=== PATIENT | female | born 1995 | race Caucasian/White ===

== ENCOUNTER 2025-06-13 05:37 | Inpatient (IN) ==
--- NOTE | 2025-06-06 09:16 | Anesthesiology Consultation ---
Date of Service June 06, 2025 Assessment & Plan (1) Encounter for pre-operative examination: - Per weathercaster on 06/06/25: No known infectious disease contacts, current infectious disease symptoms in past 10 days or COVID positive test result in the past 30 days. Chart Review Chart Review: entry level paralegal initiated History Surgery Operation Date: 06/13/25 07:30 Proposed Procedures p Section (Delivery of Baby Through Abdominal Incision) - Deidra Harris, Height/Weight Height: 5 ft 7.5 in Weight: 96.615 kg Allergies Allergy/AdvReac Type Severity Reaction Status Date / Time No Known Allergies Allergy Verified 06/06/25 08:28 Medications Home Medications Medication Instructions Recorded Confirmed Last Taken diphenhydramine HCl 50 mg capsule 50 mg PO HS PRN Sleep 06/06/25 06/06/25 Unknown ([employer] SleepGels) prenat.vits,felix,[id number] 1 tab PO DAILY 06/06/25 06/06/25 Unknown Past Medical History Medical History (Updated 06/06/25 @ 09:15 by Tiffany Lawton PA-C) History of anesthesia reaction had mild itchy intermittent patchy rash up both arms following prior c/s. Lasted 6-8 weeks following c/s then resolved. Unknown etiology. History of COVID-19 2019, no hx hospitalization. History of miscarriage Past Family History Family History Mother Breast cancer, Onset Age: 40 Grandmother (Maternal) Breast cancer Grandmother (Paternal) Breast cancer Denies family history of Ovarian cancer Colorectal cancer Uterine cancer Past Surgical History Surgical History H/O section twin , had in [place]. Social History Smoking Status: Never smoker Do You Dip or Chew Tobacco: No Hx Substance Use: No substance use type: does not use
--- NOTE | 2025-06-10 09:42 | History & Physical Report ---
Date of Service June 10, 2025 Assessment & Plan (1) Previous delivery affecting , antepartum: Plan: Reviewed consent in office. Plan for repeat section . History of Present Illness Chief Complaint: repeat csection Primary Care Provider: KLAUS PCP 29yo with EDC 06/20/25. Plans for repeat CS. Prior LTCS -leans toward repeat c/s C/S SCHEDULED FOR 06/13/[address] KEARNEY Mother with breast cancer, 42 *begin mammo age 32 hepatitis b non-immune Allergies Allergy/AdvReac Type Severity Reaction Status Date / Time No Known Allergies Allergy Verified 06/10/25 09:01 Home Medications Medication Instructions Recorded Confirmed Type diphenhydramine HCl 50 mg capsule 50 mg PO HS PRN Sleep 06/06/25 06/10/25 History ([employer] SleepGels) prenat.vits,felix,fcv-uxxx-cqhbr 1 tab PO DAILY 06/06/25 06/10/25 History Patient History Medical History History of anesthesia reaction had mild itchy intermittent patchy rash up both arms following prior c/s. Lasted 6-8 weeks following c/s then resolved. Unknown etiology. History of COVID-19 2019, no hx hospitalization. History of miscarriage Surgical History H/O section twin , had in [place]. Family History Mother Breast cancer, Onset Age: 40 Grandmother (Maternal) Breast cancer Grandmother (Paternal) Breast cancer Denies family history of Ovarian cancer Colorectal cancer Uterine cancer Social History (Updated 11/24/24 @ 11:01 by Lexy Franco) Smoking Status: Never smoker Do You Dip or Chew Tobacco: No; Hx Substance Use: No Preferred Language: Yoruba Communication Ability: Effective Garment Manufacturer Required: No Beliefs That Will Affect Care: None marital status: marital status details: Riki Guardado (33) [phone] Current Living Situation: Spouse and Family Current Living Situation Comment: lives with spouse, 2 children, dog current occupational status: other current occupation: homemaker Feels Safe at Home: Yes Assistive Devices: Contacts and Glasses Review of Systems All systems reviewed & are unremarkable except as noted in HPI & below Physical Exam Constitutional: WD/WN, vitals as above Respiratory: normal respiratory effort, lungs clear to auscultation no respiratory distress Cardiovascular: Rate/Rhythm: regular rate and regular rhythm Gastrointestinal (Abdomen): Inspection/Auscultation: abdomen normal to inspection Percussion/Palpation: abdomen soft; abdomen nontender Gravid. No s/s chorio or abruption. Skin: no rashes, warm and dry Psychiatric: A+Ox3, euthymic affect Coding Level of Care Code None Diagnoses Previous delivery affecting , antepartum O34.219
[2025-06-13] MEDS ORDERED: SODIUM CHLORIDE 0.9% 100 ML IV PRN (05:38)
[2025-06-13 06:07] LABS: Hematocrit (blood only) 31.9 % (37.0-47.0); Hemoglobin 10.9 g/dl (12.0-16.0); Mean Corpuscular Hemoglobin 30.3 pg (25.0-34.0); Mean Corpuscular Volume 88.6 fL (80.0-100.0); Platelet Count 172 K/uL (130-400); RDW Standard Deviation 42.0 fL (36.4-46.3); Red Blood Count 3.60 M/uL (4.20-5.40); White Blood Count 8.69 K/ul (4.8-10.8)
[2025-06-13] MEDS: LACTATED RINGER'S 1,000 ML IV SCH ×3 (06:08→10:34)
[2025-06-13] MEDS ORDERED: OXYTOCIN 10 UNITS/ML VIAL ONE (06:12)
[2025-06-13] MEDS ORDERED: DEXAMETHASONE SOD INJ 4 MG/ML VIAL ONE (06:13)
[2025-06-13] MEDS ORDERED: PHENYLEPHRINE HCL 25 MG/250 ML NSS IV ONE (06:13)
[2025-06-13] MEDS ORDERED: ONDANSETRON INJ 2 MG/ML 2 ML VIAL ONE (06:13)
[2025-06-13] MEDS ORDERED: MoRPHine SULFATE PF 1 MG/ML 10 ML AMP/VIAL ONE (06:13)
[2025-06-13] MEDS: ACETAMINOPHEN 500 MG TAB PO SCH (06:29)
--- NOTE | 2025-06-13 07:15 | History & Physical Bridge Note ---
Date of Service June 13, 2025 History & Physical Bridge Note I have examined the patient, reviewed the History & Physical and in the interval since the performance of the History & Physical I have noted the following changes of clinical significance: no changes noted
[2025-06-13] MEDS: CITRIC ACID/SODIUM CITRATE 15 ML UDC PO SCH (07:25)
[2025-06-13] MEDS ORDERED: KETAMINE HCL 10MG/ML SYR ONE (08:00)
[2025-06-13] MEDS ORDERED: LACTATED RINGER'S 500 ML IV PRN (08:04)
[2025-06-13] MEDS ORDERED: diphenhydrAMINE 50 MG/ML VIAL IV PRN (08:04)
[2025-06-13] MEDS ORDERED: PROMETHAZINE 6.25 MG/50.25 ML BAG IV PRN (08:04)
[2025-06-13] MEDS ORDERED: NALOXONE HCL 0.4 MG/1 ML VIAL/CARP IV PRN (08:04)
[2025-06-13] MEDS ORDERED: NALOXONE HCL 0.08 MG in SYRINGE 1.8 ML IV PRN (08:04)
[2025-06-13] MEDS ORDERED: NALOXONE HCL 1 MG in SODIUM CHLORIDE 0.9% 1,000 ML IV PRN (08:04)
[2025-06-13] MEDS ORDERED: ONDANSETRON INJ 2 MG/ML 2 ML VIAL IV PRN ×2 (08:04→09:10)
[2025-06-13] MEDS ORDERED: NO NARCOTICS OR SEDATIVES SCH (08:15)
[2025-06-13] MEDS ORDERED: DC INTRASPINAL MORPHINE SCH (08:15)
[2025-06-13 08:27] LABS: Base Excess Cord Arterial Bld -2.1 mEq/L (-9-1.8); CO2 Cord Arterial Blood 54 mmHg (39.1-73.5); HCO3 Cord Arterial Blood 25 mmol/L (19.7-28.5); Oxygen Sat Cord Arterial Blood < 60.0 % (<60); PO2 Cord Arterial Blood < 20 mmHg (4.1-31.7); pH Cord Arterial Blood 7.28 (7.1-7.38)
[2025-06-13 08:28] LABS: Base Excess Cord Venous Blood -1.1 mEq/L (-7.7-1.9); Cord Venous Blood PO2 30 mmHg (14.1-43.3); O2 Saturation Cord Venous Bld 69.3 % (<68)
[2025-06-13] MEDS ORDERED: KETOROLAC 30 MG/ML VIAL ONE (08:34)
--- NOTE | 2025-06-13 08:41 | Operative Report ---
Post Operative Report Pre & Post Diagnosis Operation Date: 06/13/25 07:30 Pre: history of x 1, desire for repeat Post: same I identified the patient and participated in the time-out.: Yes Procedure Operation Date: 06/13/25 07:30 Repeat low transverse section Surgeon Deidra Harris, Food And Beverage Coordinator Elizabeth Courtney MD Quantitative Blood Loss (QBL) 468 Findings Consistent with Post-Op Diagnosis Viable male , Apgars 9/9. Weight pending, please see nursery records. Specimens placenta, cord blood, cord gas Drains agustin clear yellow Anesthesia Type Spinal Complications none Disposition Accompanied Patient To Recovery: Yes Disposition: L&D Indications 29yo @ 39 0/7, history of section, desire for repeat Description of Procedure The patient was seen in her labor and delivery room, risks benefits and alternatives to surgery were reviewed. Informed consent obtained. Questions were answered. She was taken to the operating room, spinal anesthesia was administered. She was then prepared and draped in the usual sterile fashion in the supine position with a leftward tilt. Timeout was confirmed. A Pfannenstiel skin incision was made with a scalpel, and carried through to the underlying layer of fascia. Fascia was nicked at midline, and this incision was extended bilaterally. The superior aspect of the fascial incision was grasped with Romelia clamps x2, elevated off the underlying rectus abdominis muscles, and dissected sharply and bluntly. In similar fashion, the inferior aspect of the fascial incision was dissected. The rectus abdominis muscles were , and the peritoneum was entered bluntly digitally. This was extended bilaterally. The bladder flap was taken down carefully using Metzenbaum scissors. Using a new scalpel, a low transverse uterine incision was created. Clear amniotic fluid noted. The infant was delivered from a cephalic presentation. The head delivered, followed by shoulders and body. Spontaneous cry on the field. The cord was doubly clamped and cut, and the was handed off to the waiting elevator examiner and adjuster. A segment was retained for cord gases. Cord blood was obtained. The placenta was delivered spontaneously intact. The uterus was exteriorized, and cleared of all clots and debris. The hysterotomy incision was reapproximated using 0 Vicryl in a running locked stitch. A second layer of the same suture was used to imbricate the incision. Posterior uterus was evaluated and normal. The uterus was returned to the abdomen, and gutters were cleared of clots and debris. Excellent hemostasis was observed. The fascial incision was reapproximated using 0 Vicryl in a running stitch. The subcutaneous tissue was irrigated, and reapproximated using 2-0 plain gut in a running stitch. The skin was reapproximated using 4-0 Vicryl in a running subcuticular stitch. Steri-Strips and a bandage were applied. The patient tolerated the procedure well, and will be taken to the recovery area in stable and good condition. I attest to the content of the Intraoperative Record and any orders documented therein. Any exceptions are noted below. OB Procedure Charges 09295
--- NOTE | 2025-06-13 09:01 | Anesthesiology Progress Note ---
Date of Service June 13, 2025 Anesthesia Post Procedure Vital Signs Vital Signs: Temp Pulse Resp BP Pulse Ox 06/13/25 08:56 64 100 06/13/25 08:52 63 115/57 L 06/13/25 08:51 66 100 06/13/25 08:48 65 91 06/13/25 08:46 65 100 06/13/25 08:42 65 114/56 L 06/13/25 08:41 68 100 06/13/25 07:05 68 116/61 06/13/25 05:46 98.4 F 18 06/13/25 05:45 74 123/65 Transfer of Care Handoff Completed per policy Notes Mental Status: alert / awake / arousable and participated in evaluation Patient Amnestic to Procedure: No Nausea / Vomiting: adequately controlled Pain: adequately controlled Airway Patency, RR, SpO2: stable & adequate BP & HR: stable & adequate Hydration State: stable & adequate Neuraxial Anesthesia: was administered and sensory block is resolving Anesthetic Complications: no major complications apparent and Pt Satisfied with anesthetic care
[2025-06-13] MEDS ORDERED: MAGNESIUM HYDROXIDE SUSP 30 ML UDC PO PRN (09:10)
[2025-06-13] MEDS ORDERED: CALCIUM CARBONATE 500 MG CHEWABLE TAB PO PRN (09:10)
[2025-06-13] MEDS ORDERED: BENZOCAINE 20% SPRY 85 APPLN/85 GM CAN EXT PRN (09:10)
[2025-06-13] MEDS ORDERED: SENNA 8.6 MG TAB PO PRN (09:10)
[2025-06-13] MEDS: KETOROLAC 30 MG/ML VIAL IV SCH (09:10)
[2025-06-13] MEDS ORDERED: HYDROCORTISONE ACETATE 25 MG SUPP PR PRN (09:10)
[2025-06-13] MEDS: NALBUPHINE HCL INJ 10 MG/ML AMP IV PRN (10:25)
[2025-06-13] MEDS: HYDROmorphone INJ 0.5 MG/0.5 ML SYR IV PRN (10:27)
[2025-06-13] MEDS: MoRPHine SULFATE PF 1 MG/ML 10 ML AMP/VIAL INT SPINAL ONE (10:33)
[2025-06-13] MEDS: SODIUM CHLORIDE 0.9% 1,000 ML IV SCH (10:33)
[2025-06-13] MEDS: DIPHTHER/TETAN/PERTUS Vaccine (Tdap, Adol/Adult) 0.5mL IM ONE (10:34)
[2025-06-13] MEDS: OXYTOCIN 20 UNITS/LR 1,002 ML IV SCH (10:56)
[2025-06-13] MEDS: ACETAMINOPHEN 325 MG TAB PO SCH (14:46)
[2025-06-13] MEDS: SIMETHICONE 80 MG CHEW PO SCH (14:46)
[2025-06-13] MEDS: DOCUSATE SODIUM 100 MG CAP PO SCH (20:32)
[2025-06-14] MEDS ORDERED: diphenhydrAMINE Capsule 25 MG CAP PO PRN (02:07)
[2025-06-14] MEDS ORDERED: PROMETHAZINE 12.5 MG/50.5 ML BAG IV PRN (02:07)
[2025-06-14] MEDS ORDERED: HYDROmorphone INJ 0.5 MG/0.5 ML SYR IV PRN (02:07)
[2025-06-14] MEDS ORDERED: diphenhydrAMINE 50 MG/ML VIAL IV PRN (02:07)
--- NOTE | 2025-06-14 06:00 | Obstetrical Progress Note ---
Date of Service June 14, 2025 Assessment & Plan (1) examination following delivery: Plan: Feels well today. Vital signs stable Continue post- care Encourage ambulation and Pain controlled with ibuprofen Hgb stable Discharge home today, follow up with Dr. Harris in 6 weeks. Admission and Anticipated Discharge Date Admission Date: June 13, 2025 Anticipated date of discharge: 06/14/25 Supervising Physician Co-Signing Physician Notes Resident Physician Supervision Note: I was present with Dr. Faye during the history and exam. I discussed the case with the resident and agree with the findings and plan as documented in the not e. Any exceptions or clarifications are listed here: POD#1 doing well, incision CDI. Anticipate DC home tomorrow. Documented By: Deidra Harris, DO Subjective Coco Guardado is a 29 y/o day 1 s/p repeat delivery. Ambulation: ambulating normally Voiding: no voiding problems Passing Gas:: Yes Diet Tolerance:: regular diet Lochia:: Small Feeding Type:: bottle feeding Current Pain Level: 2/10 Resting comfortably this AM in NAD. Denies LEDESMA, CP, SOB, N/V/D, LE pain/swelling. Review of Systems Review of Systems: All systems reviewed & are unremarkable except as noted in HPI & below Physical Exam Physical Exam: General: patient resting comfortably, NAD, non-toxic in appearance, AA&O x 4, answers questions appropriately. Skin: warm, dry, intact HEENT: NC/AT, anicteric sclera, conjunctiva without injection, moist mucus membranes. Heart: +S1/S2, regular, no m/r/g Lungs: equal air entry bilaterally, no rales/rhonchi/wheezes Abd: +BS, soft, NT/ND, uterine fundus firm, nontender below umbilicus, caesarean incision C/D/I. Ext: warm, no clubbing/cyanosis or edema, Cat's neg. SCDs on and running. Neuro: nonfocal, patient AA&O x 4, speech intact, no facial droop, moving all extremities on command. Constitutional: WD/WN, vitals as above Results & Data Vital Signs (Past 12 Hours) Vital Signs Temp Pulse Pulse Resp BP Pulse Ox O2 Del Method 06/14/25 03:20 36.7 C 63 18 110/65 97 Room Air 06/14/25 02:13 16 96 06/14/25 01:31 16 96 06/14/25 00:26 18 96 06/13/25 23:12 18 98 06/13/25 23:12 36.5 C 62 18 108/62 98 Room Air 06/13/25 22:10 16 97 06/13/25 21:20 18 98 06/13/25 20:55 18 97 06/13/25 19:15 36.3 C L 60 18 106/65 99 Room Air 06/13/25 18:00 16 100
[2025-06-14 06:20] LABS: Hematocrit (blood only) 27.4 % (37.0-47.0); Hemoglobin 9.3 g/dl (12.0-16.0); Immature Granulocytes # (auto) 0.06 K/uL (0.01-0.20); Immature Granulocytes % (auto) 0.7 %; Mean Corpuscular Hemoglobin 30.5 pg (25.0-34.0); Mean Corpuscular Volume 89.8 fL (80.0-100.0); Platelet Count 145 K/uL (130-400); RDW Standard Deviation 42.8 fL (36.4-46.3); Red Blood Count 3.05 M/uL (4.20-5.40); White Blood Count 8.47 K/ul (4.8-10.8)
[2025-06-14] MEDS: FERROUS SULFATE 325 MG TAB PO SCH (08:13)
[2025-06-14] MEDS: IBUPROFEN 600 MG TAB PO SCH (08:13)
[2025-06-14] MEDS: PRENATAL VITAMIN 1 TAB PO SCH (08:13)
[2025-06-14] MEDS ORDERED: KETOROLAC 30 MG/ML VIAL IV PRN (08:46)
[2025-06-14 21:25] VITALS: RESP 16
--- NOTE | 2025-06-15 05:49 | Obstetrical Progress Note ---
Date of Service June 15, 2025 Assessment & Plan (1) examination following delivery: Plan: Feels well today. Vital signs stable Continue post- care Encourage ambulation and Pain controlled with ibuprofen Hgb stable Discharge home today, follow up with Dr. Harris in 6 weeks. Admission and Anticipated Discharge Date Admission Date: June 13, 2025 Anticipated date of discharge: 06/15/25 Supervising Physician Co-Signing Physician Notes Patient seen with resident agree with the above findings and plan. Patient doing well and stable for discharge. Is reporting intermittent shoulder pain that is consistent with postoperative gas pain. Denying any shortness of breath heart palpitations or any distinct cardiopulmonary concerns. Subjective Coco Guardado is a 29 y/o day 2 s/p repeat delivery. Has been up and ambulating without concern. Ambulation: ambulating normally Voiding: no voiding problems Passing Gas:: Yes Diet Tolerance:: regular diet Lochia:: Small Feeding Type:: bottle feeding Current Pain Level: Taking Tylenol and ibuprofen as scheduled. Offered patient oxycodone that has been prescribed to her in hospital after her , however refused. Patient states she does feel well enough to go home today. Resting comfortably this AM in NAD. Denies N/V/D, LE pain/swelling. Physical Exam Physical Exam: General: patient resting comfortably, NAD, non-toxic in appearance, AA&O x 4, answers questions appropriately. Skin: warm, dry, intact HEENT: NC/AT, anicteric sclera, conjunctiva without injection, moist mucus membranes. Heart: +S1/S2, regular, no m/r/g Lungs: equal air entry bilaterally, no rales/rhonchi/wheezes Abd: +BS, soft, NT/ND, uterine fundus firm, nontender below umbilicus, caesarean incision C/D/I. Ext: warm, no clubbing/cyanosis or edema, Cat's neg. SCDs on and running. Neuro: nonfocal, patient AA&O x 4, speech intact, no facial droop, moving all extremities on command. Constitutional: WD/WN, vitals as above Results & Data Vital Signs (Past 12 Hours) Vital Signs Temp Pulse Resp BP Pulse Ox O2 Del Method 06/15/25 03:15 36.3 C L 60 16 113/66 96 Room Air 06/14/25 20:30 36.5 C 56 L 16 104/64 97 Room Air
[2025-06-15 06:26] LABS: Hematocrit (blood only) 30.6 % (37.0-47.0); Hemoglobin 10.4 g/dl (12.0-16.0)
[2025-06-15 07:31] VITALS: BP 111/67; PULSE 58; TEMP 97.5; O2SAT 98
[2025-06-15] MEDS: IBUPROFEN 600 MG TAB PO PRN (08:35)
[2025-06-15] MEDS ORDERED: ACETAMINOPHEN 325 MG TAB PO PRN (14:46)
--- NOTE | 2025-06-17 08:43 | Discharge Summary ---
Date of Service June 17, 2025 Admission HPI Per Admitting Provider 29yo with EDC 06/20/25. Plans for repeat CS. Prior LTCS -leans toward repeat c/s C/S SCHEDULED FOR 06/13/[address] HARRIS Mother with breast cancer, 42 *begin mammo age 32 hepatitis b non-immune Admission Exam (Per Admitting) Constitutional WD/WN, vitals as above Respiratory normal respiratory effort, lungs clear to auscultation no respiratory distress Cardiovascular Rate/Rhythm: regular rate and regular rhythm Gastrointestinal (Abdomen) Inspection/Auscultation: abdomen normal to inspection Percussion/Palpation: abdomen soft; abdomen nontender Skin no rashes, warm and dry Psychiatric A+Ox3, euthymic affect Discharge Data Consultations 06/13/25 04:54 Consult Anesthesiology Stat Procedures Performed Operation Date: 06/13/25 07:30 Actual Procedures p Repeat Section; Live male child at (Bilateral) - Deidra Harris, DO Hospital Course (1) examination following delivery: Feels well today. Vital signs stable Continue post- care Encourage ambulation and Pain controlled with ibuprofen Hgb stable Discharge home today, follow up with Dr. Harris in 6 weeks. Supervising Physician Co-Signing Physician Notes Patient seen with resident agree with the above findings and plan. Patient doing well and stable for discharge. Is reporting intermittent shoulder pain that is consistent with postoperative gas pain. Denying any shortness of breath heart palpitations or any distinct cardiopulmonary concerns. Coding Level of Care Code None Diagnoses examination following delivery Z39.2
== END 2025-06-15 08:55 | disposition home or self-care (01) | DRG 788 ==
LOC: 4S1 05:37 → EDSTATUS 07:30 → 4E2 11:15
DX: Z3A.39 39 weeks gestation of pregnancy; O34.211 Maternal care for low transverse scar from previous cesarean delivery; Z37.0 Single live birth